=== PATIENT | female | born 1975 | race Caucasian/White ===

== ENCOUNTER → 2019-02-17 | Outpatient (CLI) | payer OTHER ==
[~2019-02-17] VITALS: Ht 160 cm; Wt 93.0 kg
[~2019-02-17] MED LIST: ALEVE 220MG220 MG PO; BLISOVI 24 FE1 EACH PO; EPIPEN 2-PAK1 MG/ML IM; PROVENTIL0.09 MG/A1 IH; RT ADVAIR 128 DISKUS IH; SYNTHROID0.088 MG/T PO; TYLENOL 500MG500 MG PO; ZOLOFT 100MG100 MG PO
[2019-02-17 15:17] VITALS: BP 140/90; PULSE 76
== END ==
LOC: LIGHT 13:25
DX: J45.909 Unspecified asthma, uncomplicated (principal); E66.9 Obesity, unspecified; Z68.36 Body mass index [BMI] 36.0-36.9, adult; Z71.3 Dietary counseling and surveillance
CPT/HCPCS: G0463

== ENCOUNTER → 2019-03-10 | Outpatient (CLI) | payer OTHER | LOC: LIGHT 03-03 10:39 | DX: J45.909 Unspecified asthma, uncomplicated (principal); E66.9 Obesity, unspecified; Z68.36 Body mass index [BMI] 36.0-36.9, adult; Z71.3 Dietary counseling and surveillance ==

== ENCOUNTER → 2019-03-23 | Outpatient (CLI) | payer OTHER | LOC: LIGHT 15:55 | DX: J45.909 Unspecified asthma, uncomplicated (principal); E66.9 Obesity, unspecified; Z68.36 Body mass index [BMI] 36.0-36.9, adult; Z71.3 Dietary counseling and surveillance ==

== ENCOUNTER → 2019-03-26 | Outpatient (CLI) | payer OTHER ==
[~2019-03-26] VITALS: Ht 160 cm; Wt 93.9 kg
[2019-03-26 10:13] VITALS: BP 146/76; PULSE 81
== END ==
LOC: LIGHT 03-24 15:03
DX: J45.909 Unspecified asthma, uncomplicated (principal); E66.9 Obesity, unspecified; Z68.36 Body mass index [BMI] 36.0-36.9, adult; Z71.3 Dietary counseling and surveillance
CPT/HCPCS: G0463

== ENCOUNTER → 2019-04-10 | Outpatient (CLI) | payer OTHER | LOC: BHSO 13:56 | DX: F40.228 Other natural environment type phobia (principal) ==

== ENCOUNTER → 2019-05-05 | Outpatient (CLI) | payer OTHER ==
[~2019-05-05] MED LIST changes: +LOMAIRA8 MG PO
== END ==
LOC: BHSO 15:55
DX: F40.248 Other situational type phobia (principal)

== ENCOUNTER → 2019-05-07 | Outpatient (CLI) | payer OTHER ==
[~2019-05-07] VITALS: Ht 160 cm; Wt 93.0 kg
[2019-05-07 16:48] VITALS: BP 132/90; PULSE 80
== END ==
LOC: LIGHT 04-23 15:37
DX: J45.909 Unspecified asthma, uncomplicated (principal); E66.9 Obesity, unspecified; Z68.36 Body mass index [BMI] 36.0-36.9, adult; Z71.3 Dietary counseling and surveillance
CPT/HCPCS: G0463

== ENCOUNTER → 2019-06-02 | Outpatient (CLI) | payer OTHER | LOC: BHSO 15:53 | DX: F40.248 Other situational type phobia (principal) ==

== ENCOUNTER → 2019-06-16 | Outpatient (CLI) | payer OTHER ==
[~2019-06-16] MED LIST changes: +FASTIN30 MG PO; -LOMAIRA8 MG PO
== END ==
LOC: BHSO 16:00
DX: F40.248 Other situational type phobia (principal)

== ENCOUNTER → 2019-06-18 | Outpatient (CLI) | payer OTHER ==
[~2019-06-18] VITALS: Ht 160 cm; Wt 93.0 kg
[2019-06-18 16:26] VITALS: BP 130/90; PULSE 72
--- NOTE | 2019-06-18 17:00 | NUR ---
OBTAINED A SIGNED RELEASE OF INFORMATION TO VERBALLY OR BY WRITTEN CHART COPIES TO SHARE INFORMATION BETWEEN VERONICA OJEDA AND BENIGNO [facility]IA [employer]. INFORMED PATIENT THAT SHE COULD DISCUSS WITH HER THERAPIST IF THERE WAS ANY INFORMATION THAT SHE DID NOT WISH TO SHARE.
== END ==
LOC: LIGHT 11:55
DX: J45.909 Unspecified asthma, uncomplicated (principal); E66.9 Obesity, unspecified; Z68.36 Body mass index [BMI] 36.0-36.9, adult; Z71.3 Dietary counseling and surveillance
CPT/HCPCS: G0463

== ENCOUNTER → 2019-06-30 | Outpatient (CLI) | payer OTHER | LOC: BHSO 15:54 | DX: F40.248 Other situational type phobia (principal) ==

== ENCOUNTER → 2019-07-14 | Outpatient (CLI) | payer OTHER | LOC: BHSO 15:54 | DX: F40.248 Other situational type phobia (principal) ==

== ENCOUNTER → 2019-07-16 | Outpatient (CLI) | payer OTHER ==
[~2019-07-16] VITALS: Ht 160 cm; Wt 91.9 kg
[2019-07-16 15:41] VITALS: BP 140/80; PULSE 100
== END ==
LOC: LIGHT 14:17
DX: J45.909 Unspecified asthma, uncomplicated (principal); E66.9 Obesity, unspecified; Z68.35 Body mass index [BMI] 35.0-35.9, adult; Z71.3 Dietary counseling and surveillance
CPT/HCPCS: G0463

== ENCOUNTER → 2019-07-28 | Outpatient (CLI) | payer OTHER | LOC: BHSO 15:55 | DX: F40.248 Other situational type phobia (principal) ==

== ENCOUNTER → 2019-08-11 | Outpatient (CLI) | payer OTHER | LOC: BHSO 15:57 | DX: F40.248 Other situational type phobia (principal) ==

== ENCOUNTER → 2019-08-25 | Outpatient (CLI) | payer OTHER | LOC: BHSO 15:54 | DX: F40.248 Other situational type phobia (principal) ==

== ENCOUNTER → 2019-09-08 | Outpatient (CLI) | payer OTHER | LOC: BHSO 15:50 | DX: F40.248 Other situational type phobia (principal) ==

== ENCOUNTER → 2019-11-03 | Outpatient (CLI) | payer OTHER | LOC: BHSO 15:53 | DX: F40.248 Other situational type phobia (principal) ==

== ENCOUNTER → 2019-12-03 | Outpatient (CLI) | payer OTHER | LOC: BHSO 15:53 | DX: F40.248 Other situational type phobia (principal) ==

== ENCOUNTER → 2019-12-14 | Outpatient (CLI) | payer OTHER | LOC: BHSO 14:56 | DX: F40.248 Other situational type phobia (principal) ==

== ENCOUNTER → 2019-12-29 | Outpatient (CLI) | payer OTHER | LOC: BHSO 15:59 | DX: F40.248 Other situational type phobia (principal) ==

== ENCOUNTER → 2020-03-22 | Outpatient (CLI) | payer OTHER | LOC: BHSO 15:54 | DX: F40.248 Other situational type phobia (principal) ==

== ENCOUNTER → 2020-04-05 | Outpatient (CLI) | payer OTHER | LOC: BHSO 15:55 | DX: F40.248 Other situational type phobia (principal) ==

== ENCOUNTER → 2020-04-26 | Outpatient (CLI) | payer OTHER | LOC: BHSO 15:56 | DX: F40.248 Other situational type phobia (principal) ==

== ENCOUNTER → 2020-06-13 | Outpatient (CLI) | payer OTHER | LOC: BHSO 05-23 15:55 | DX: F40.248 Other situational type phobia (principal) ==

== ENCOUNTER → 2020-07-05 | Outpatient (CLI) | payer OTHER | LOC: BHSO 15:50 | DX: F40.248 Other situational type phobia (principal) ==

== ENCOUNTER → 2020-07-26 | Outpatient (CLI) | payer OTHER | LOC: BHSO 15:53 | DX: F40.248 Other situational type phobia (principal) ==

== ENCOUNTER 2023-10-16 08:49 | Day surgery (SDC) | payer OTHER ==
[~2023-10-16] VITALS: Ht 160 cm; Wt 101.6 kg
[2023-10-16] MEDS ORDERED: KLOR-CON M1010 MEQ PO (10:00)
[2023-10-16] MEDS ORDERED: COREG12.5 MG PO (10:01)
[2023-10-16] MEDS ORDERED: LIPITOR 10MG10 MG PO (10:01)
[2023-10-16] MEDS ORDERED: MICROZIDE12.5 MG PO (10:02)
[2023-10-16] MEDS ORDERED: MULTI VITAMINS1 TAB PO (10:03)
[2023-10-16] MEDS ORDERED: COZAAR100 MG PO (10:03)
[2023-10-16 10:07] VITALS: BP 146/92; PULSE 79; TEMP 97.8
[2023-10-16 11:15] VITALS: BP 128/72; PULSE 79; TEMP 96.9
[2023-10-16 11:30] VITALS: BP 133/82; PULSE 67
[2023-10-16 11:45] VITALS: BP 121/75; PULSE 72
--- NOTE | 2023-10-16 12:14 | NUR ---
1115-PATIENT TRANSPORTED TO [facility] VIA CART, ALERT AND ORIENTED ON ARRIVAL. PATIENT AMBULATED WITH ASSISTANCE TO RECLINER, WARM BLANKET PROVIDED. VITAL SIGNS TAKEN, VSS. REPORT OBTAINED FROM ADRIÁN LEVY. UPDATE GIVEN TO PATIENT AND SPOUSE AT BEDSIDE. PT DENIES PAIN OR NAUSEA. 1130-PATIENT TOLERATING PO INTAKE WITHOUT COMPLAINT, VSS. 1200-DR. KESSLER AT BEDSIDE, PROCEDURE AND PLAN OF CARE EXPLAINED, DISCHARGE INSTRUCTIONS REVIEWED AND QUESTIONS INVITED. IV CATHETER DISCONTINUED, TIP INTACT. PRESSURE HELD AND BANDAGE APPLIED. PATIENT DRESSED INDEPENDENTLY AND AMBULATED TO BATHROOM WITH STEADY GAIT. 1212-PATIENT DISCHARGED HOME TO [facility] VIA WHEELCHAIR, ACCOMPANIED BY SPOUSE. ALL BELONGINGS AND DC PAPERWORK SENT WITH PT.
== END 2023-10-16 12:12 | disposition home or self-care (01) ==
LOC: SDCO 08:49
DX: Z12.11 Encounter for screening for malignant neoplasm of colon (principal); K29.61 Other gastritis with bleeding; K31.7 Polyp of stomach and duodenum; K63.5 Polyp of colon; E66.9 Obesity, unspecified; Z80.0 Family history of malignant neoplasm of digestive organs
CPT/HCPCS: J2704; J7120